=== PATIENT | male | born 1955 | race Caucasian/White ===

== ENCOUNTER 2016-10-12 18:48 | Emergency (ER) | payer SELFPAY ==
[~2016-10-12] VITALS: Ht 182.9 cm; Wt 114.5 kg
[~2016-10-12 18:48] MED LIST: HYDR-3580 PO; MOBI7.5T OR; RIVA10 PO
[2016-10-12 18:50] VITALS: BP 169/100; PULSE 104; RESP 20; TEMP 97.5; O2SAT 95
--- NOTE | 2016-10-12 19:52 | RADRPT ---
EXAM DATE/TIME: 10/12/2016 19:37 [facility] COMPARISON: No previous studies available for comparison. INDICATIONS : Headache for a few weeks and hands trembling for over a week. RADIATION DOSE: 56.35 CTDIvol (mGy) MEDICAL HISTORY : None SURGICAL HISTORY : None. ENCOUNTER: Initial ACUITY: 2 weeks PAIN SCALE: 7/10 LOCATION: cranial TECHNIQUE: Multiple contiguous axial images were obtained of the head. Using automated exposure control and adj ustment of the mA and/or kV according to patient size, radiation dose was kept as low as reasonably a chievable to obtain optimal diagnostic quality images. FINDINGS: CEREBRUM: The ventricles are normal for age. No evidence of midline shift, mass lesion, hemorrhage or acute in farction. No extra-axial fluid collections are seen. POSTERIOR FOSSA: The cerebellum and brainstem are intact. The 4th ventricle is midline. The cerebellopontine angle i s unremarkable. EXTRACRANIAL: The visualized portion of the orbits is intact. SKULL: The calvaria is intact. No evidence of skull fracture. CONCLUSION: Negative noncontrast exam. Madhu Keane MD on October 12, 2016 at 19:50 Board Certified Radiologist. This report was verified electronically.
[2016-10-12] MEDS ORDERED: SODIUM CHLOR 0.9% 1000 ML INJ 1,000 ML IV ONE (20:05)
[2016-10-12] MEDS ORDERED: SODIUM CHLORIDE 0.9% FLUSH 5 ML FLUSH IVF PRN (20:15)
[2016-10-12] MEDS ORDERED: XARE10TA PO (20:24)
[2016-10-12 20:38] LABS: BACTERIA, URINE RARE /hpf; BLOOD, URINE NEG (NEG); COMMENT (UR) CULT NOT INDICATED; CULTURE IF INDICATED CULT NOT INDICATED; GLUCOSE,URINE NEG (NEG); KETONE, URINE NEG (NEG); MUCUS URINE FEW /lpf (OCC); NITRITE,URINE NEG (NEG); PH, URINE 5.5 (5.0-8.5); URINE COLOR YELLOW (YELLW/STRAW)
--- NOTE | 2016-10-12 20:47 | RADRPT ---
EXAM DATE/TIME: 10/12/2016 20:18 [facility] COMPARISON: No previous studies available for comparison. INDICATIONS : Headache for 1 week. MEDICAL HISTORY : None. SURGICAL HISTORY : None. ENCOUNTER: Initial ACUITY: 1 week PAIN SCORE: 4/10 LOCATION: Bilateral chest FINDINGS: A single view of the chest demonstrates the lungs to be symmetrically aerated without evidence of mas s, infiltrate or effusion. The cardiomediastinal contours are unremarkable. Osseous structures are intact. CONCLUSION: No acute disease. Madhu Keane MD on October 12, 2016 at 20:46 Board Certified Radiologist. This report was verified electronically.
[2016-10-12 20:48] LABS: AUTOMATED NEUTROPHIL # 3.8 TH/MM3 (1.8-7.7); BASOPHIL # 0.1 TH/MM3 (0-0.2); BASOPHIL % 0.8 % (0.0-2.0); EOSINOPHIL # 0.1 TH/MM3 (0-0.4); EOSINOPHIL % 1.8 % (0.0-4.0); HEMATOCRIT 44.9 % (39.0-51.0); HEMO FLAGS DIFF FINAL; LYMPH % 31.1 % (9.0-44.0); LYMPHOCYTE # 2.1 TH/MM3 (1.0-4.8); MEAN CELL VOLUME 85.8 FL (80.0-100.0); MEAN CORPUSCULAR HEMOGLOBIN 30.4 PG (27.0-34.0); MEAN CORPUSCULAR HGB CONC 35.4 % (32.0-36.0); MONO % 9.7 % (0.0-8.0); NEUT % 56.6 % (16.0-70.0); PLATELET COUNT 310 TH/MM3 (150-450); RED BLOOD COUNT 5.23 MIL/MM3 (4.50-5.90); RED CELL DISTRIBUTION WIDTH 13.8 % (11.6-17.2); WHITE BLOOD COUNT 6.7 TH/MM3 (4.0-11.0)
[2016-10-12 20:49] LABS: APTT (PATIENT) 25.2 SEC (24.3-30.1); INTERNATIONAL NORMALIZED RATIO 0.9 RATIO
--- NOTE | 2016-10-12 21:00 | PD ---
HPI Chief Complaint: Medical Clearance Time Seen by Provider: 20:59 Travel History International Travel<30 days: No Contact w/Intl Traveler<30days: No Traveled to known affect area: No History of Present Illness HPI 61-year-old male with no significant medical history, presents to emergency department for evaluation. Patient states generally he returned from a long drive for work, came home and wasn't feeling really well. He went to bed and woke up on September 26 and states he had the worst headache of his life. He states he does not typically get headaches and this headache waxed and waned but persisted for a solid week. He states the headache resolved and he developed a sharp stabbing pain in his mid back. This lasted for approximately 2 days and then resolved but the headache returned and has been a nagging constant headache for the last week. Approximately for 5 days ago he developed bilateral upper extremity tremors. States he has never had anything like this in his life. States that he typically prides his handwriting but has had to have his daughter right his checks and anything important for him because of the tremors. Denies any nausea or vomiting. States he has had some dizziness associated with the headache but mostly when the pain was so bad. No chest tightness. No difficulty breathing. Patient is also tobacco cigarettes. Drinks occasional alcohol. No other symptoms to report. PFSH Past Medical History Medical History: Denies Significant Hx Cancer: No Cardiovascular Problems: No Diabetes: No Endocrine: No Genitourinary: No Hepatitis: No Hiatal Hernia: No Immune Disorder: No Medical other: No Musculoskeletal: Yes (RIGHT HIP) Neurologic: No Psychiatric: No Respiratory: No Thyroid Disease: No Tetanus Vaccination: < 5 Years Influenza Vaccination: No Past Surgical History Abdominal Surgery: No AICD: No Body Medical Devices: NONE Cardiac Surgery: No Ear Surgery: No Endocrine Surgery: No Eye Surgery: No Genitourinary Surgery: No Joint Replacement: Yes (R HIP REPLACEMENT) Oral Surgery: No Pacemaker: No Thoracic Surgery: No Other Surgery: Yes Social History Alcohol Use: Yes (OCCAS) Tobacco Use: No Substance Use: No Allergies-Medications (Allergen,Severity, Reaction): Coded Allergies: Penicillin (Unverified Allergy, Unknown, UNKNOWN - FROM CHILDHOOD, 10/12/16 ) Reported Meds & Prescriptions Reported Meds & Active Scripts Active Reported Xarelto (Rivaroxaban) 10 Mg Tab 10 Mg PO DAILY Review of Systems Except as stated in HPI: all other systems reviewed are Neg Physical Exam Narrative GENERAL: Well-nourished male patient, ambulatory no acute distress SKIN: Warm and dry. HEAD: Atraumatic. Normocephalic. EYES: Pupils equal and round. No scleral icterus. No injection or drainage. ENT: No nasal bleeding or discharge. Mucous membranes pink and moist. NECK: Trachea midline. No JVD. CARDIOVASCULAR: Regular rate and rhythm. No murmur appreciated. RESPIRATORY: No accessory muscle use. Clear to auscultation. Breath sounds equal bilaterally. GASTROINTESTINAL: Abdomen soft, non-tender, nondistended. Hepatic and splenic margins not palpable. MUSCULOSKELETAL: No obvious deformities. No clubbing. No cyanosis. No edema. Constant very minor tremor of the bilateral upper extremities. NEUROLOGICAL: Awake and alert. No obvious cranial nerve deficits. Motor grossly within normal limits. Normal speech. PSYCHIATRIC: Appropriate mood and affect; insight and judgment normal. Data Data Last Documented VS Vital Signs Date Time Temp Pulse Resp B/P Pulse Ox O2 Delivery O2 Flow Rate FiO2 10/12/16 20:19 99 18 10/12/16 18:50 97.5 169/[address] Brain W/O Iv Contrast(Rout) (10/12/16 ) Electrocardiogram (10/12/16 20:05) Complete Blood Count With Diff (10/12/16 20:05) Comprehensive Metabolic Panel (10/12/16 20:05) Magnesium (Mg) (10/12/16 20:05) Ckmb (Isoenzyme) Profile (10/12/16 20:05) Troponin I (10/12/16 20:05) Act Partial Throm Time (Ptt) (10/12/16 20:05) Prothrombin Time / Inr (Pt) (10/12/16 20:05) Urinalysis - C+S If Indicated (10/12/16 20:05) Chest, Single Ap (10/12/16 20:05) Ecg Monitoring (10/12/16 20:05) Iv Access Insert/Monitor (10/12/16 20:05) Oximetry (10/12/16 20:05) Sodium Chloride 0.9% Flush (Ns Flush) (10/12/16 20:15) Sodium Chlor 0.9% 1000 Ml Inj (Ns 1000 M (10/12/16 20:05) Cta Brain W Iv Contrast W 3d (10/12/16 ) Cta Neck W Iv Contrast W 3d (10/12/16 ) Labs Laboratory Tests Test 10/12/16 10/12/16 20:15 20:20 White Blood Count 6.7 TH/MM3 Red Blood Count 5.23 MIL/MM3 Hemoglobin 15.9 GM/DL Hematocrit 44.9 % Mean Corpuscular Volume 85.8 FL Mean Corpuscular Hemoglobin 30.4 PG Mean Corpuscular Hemoglobin 35.4 % Concent Red Cell Distribution Width 13.8 % Platelet Count 310 TH/MM3 Mean Platelet Volume 7.9 FL Neutrophils (%) (Auto) 56.6 % Lymphocytes (%) (Auto) 31.1 % Monocytes (%) (Auto) 9.7 % Eosinophils (%) (Auto) 1.8 % Basophils (%) (Auto) 0.8 % Neutrophils # (Auto) 3.8 TH/MM3 Lymphocytes # (Auto) 2.1 TH/MM3 Monocytes # (Auto) 0.6 TH/MM3 Eosinophils # (Auto) 0.1 TH/MM3 Basophils # (Auto) 0.1 TH/MM3 CBC Comment DIFF FINAL Differential Comment Prothrombin Time 10.0 SEC Prothromb Time International 0.9 RATIO Ratio Activated Partial 25.2 SEC Thromboplast Time Urine Color YELLOW Urine Turbidity CLEAR Urine pH 5.5 Urine Specific [place] 1.011 Urine Protein NEG mg/dL Urine Glucose (UA) NEG mg/dL Urine Ketones NEG mg/dL Urine Occult Blood NEG Urine Nitrite NEG Urine Bilirubin NEG Urine Urobilinogen LESS THAN 2.0 MG/DL Urine Leukocyte Esterase NEG Urine WBC 2 /hpf Urine Bacteria RARE /hpf Urine Mucus FEW /lpf Microscopic Urinalysis Comment CULT NOT INDICATED MDM Medical Decision Making Medical Screen Exam Complete: Yes Emergency Medical Condition: Yes Medical Record Reviewed: Yes Differential Diagnosis CVA versus TIA versus intracranial hemorrhage versus demyelinating disease versus aneurysm versus vasospasm versus electrolyte abnormality versus essential tremor versus viral syndrome Narrative Course 61-year-old male presents to emergency department for evaluation. CT imaging was ordered while patient waited and resulted in no acute abnormality. I discussed the patient with Dr. Bledsoe, concerned the patient may need additional workup. Lab work is ordered. She recommends moving forward with CTA of the brain and neck. We discussed if this is negative, the patient can likely be discharged with outpatient follow-up with MRI is symptoms persisted. This is ordered. Once a medical bed because the elbow, patient will be transferred and care as seen by that provider. Condition: Stable Sera Gottlieb Oct 12, 2016 21:00
[2016-10-12 21:46] LABS: ALKALINE PHOSPHATASE 73 U/L (45-117); ALT (GPT) 23 U/L (12-78); ANION GAP 11 MEQ/L (5-15); AST (GOT) 18 U/L (15-37); BICARBONATE 23.1 MEQ/L (21.0-32.0); BLOOD UREA NITROGEN 13 MG/DL (7-18); CHLORIDE 102 MEQ/L (98-107); GLOMERULAR FILTRATION RATE 80 ML/MIN (>89); MAGNESIUM 2.4 MG/DL (1.5-2.5); SODIUM (NA) 136 MEQ/L (136-145); TOTAL BILIRUBIN ADULT 0.5 MG/DL (0.2-1.0)
[2016-10-12 21:47] LABS: CREATINE KINASE 92 U/L (39-308); POTASSIUM 4.3 MEQ/L (3.5-5.1)
[2016-10-12 21:50] VITALS: BP 175/80; PULSE 90; RESP 18; O2SAT 99
[2016-10-12] MEDS ORDERED: IOHEXOL 350 MG/ML 10 ML VIAL (for RAD DIAG) IV ONE (22:09)
--- NOTE | 2016-10-12 22:38 | RADRPT ---
EXAM DATE/TIME: 10/12/2016 22:04 [facility] COMPARISON: CT BRAIN W/O CONTRAST, October 12, 2016, 19:37. INDICATIONS : Headache and arms trembling. IV CONTRAST: 75 cc Omnipaque 350 (iohexol) IV RADIATION DOSE: 25.62 CTDIvol (mGy) MEDICAL HISTORY : None documented. SURGICAL HISTORY : None documented. ENCOUNTER: Initial ACUITY: 1 day PAIN SCALE: 3/10 LOCATION: cranial This would be considered an anaphylactic reaction to contrast and patient should be appropriately med icated TECHNIQUE: Volumetric scanning was performed using a multi-row detector CT scanner. The data was post processed with a variety of visualization algorithms including full volume maximum intensity projection, multi -planar sliding thin slab reformation, curved planar reformation, and surface rendering techniques. Using automated exposure control and adjustment of the mA and/or kV according to patient size, radiat ion dose was kept as low as reasonably achievable to obtain optimal diagnostic quality images. FINDINGS: There is excellent visualization of the major intracranial arteries out to the second-order branch ve ssels. There is no evidence for aneurysm, vessel truncation or stenosis, and no evidence for vascula r malformation. CONCLUSION: Unremarkable examination. Madhu Keane MD on October 12, 2016 at 22:35 Board Certified Radiologist. This report was verified electronically.
--- NOTE | 2016-10-12 23:16 | RADRPT ---
EXAM DATE/TIME: 10/12/2016 22:04 [facility] COMPARISON: No previous studies available for comparison. INDICATIONS : Headache and trembling in the hands and arms. IV CONTRAST: 76 cc Omnipaque 350 (iohexol) IV ; Cumulative dose for multiple exams. RADIATION DOSE: 25.62 CTDIvol (mGy) ; Combined studies MEDICAL HISTORY : None documented. SURGICAL HISTORY : None documented. ENCOUNTER: Initial ACUITY: 1 day PAIN SCALE: 0/10 LOCATION: cranial TECHNIQUE: Volumetric scanning was performed using a multirow detector CT scanner. The data was post processed with a variety of visualization algorithms including full-volume maximum intensity projection, multip lanar sliding thin-slab reformation, curved-planar reformation, and surface-rendering techniques. Us ing automated exposure control and adjustment of the mA and/or kV according to patient size, radiatio n dose was kept as low as reasonably achievable to obtain optimal diagnostic quality images. FINDINGS: AORTIC ARCH: There is a three-vessel origin of the great vessels from the aorta. No evidence of ostial narrowing. There are some calcified plaques along the aortic arch. RIGHT CAROTID: The common carotid artery is intact. The carotid bulb has a normal configuration without ulceration o r narrowing. Tiny calcified plaque along the proximal right internal carotid artery. The internal car otid artery lumen is smooth without stenosis. The external carotid artery is intact. LEFT CAROTID: The common carotid artery is intact. The carotid bulb has a normal configuration without ulceration or narrowing. Small calcified plaque at the carotid bifurcation. The internal carotid artery lumen i s smooth without stenosis. The external carotid artery is intact. VERTEBRALS: The vertebral arteries have a symmetric diameter. No stenotic lesions are seen. CONCLUSION: 1. Mild atherosclerotic changes at both carotid bifurcations. 2. Otherwise, unremarkable CTA of the carotids. Darío Gaviria MD on October 12, 2016 at 23:12 Board Certified Radiologist. This report was verified electronically.
--- NOTE | 2016-10-12 23:34 | PD ---
Data Data Last Documented VS Vital Signs Date Time Temp Pulse Resp B/P Pulse Ox O2 Delivery O2 Flow Rate FiO2 10/12/16 20:19 99 18 10/12/16 18:50 97.5 169/[address] Brain W/O Iv Contrast(Rout) (10/12/16 ) Electrocardiogram (10/12/16 20:05) Complete Blood Count With Diff (10/12/16 20:05) Comprehensive Metabolic Panel (10/12/16 20:05) Magnesium (Mg) (10/12/16 20:05) Ckmb (Isoenzyme) Profile (10/12/16 20:05) Troponin I (10/12/16 20:05) Act Partial Throm Time (Ptt) (10/12/16 20:05) Prothrombin Time / Inr (Pt) (10/12/16 20:05) Urinalysis - C+S If Indicated (10/12/16 20:05) Chest, Single Ap (10/12/16 20:05) Ecg Monitoring (10/12/16 20:05) Iv Access Insert/Monitor (10/12/16 20:05) Oximetry (10/12/16 20:05) Sodium Chloride 0.9% Flush (Ns Flush) (10/12/16 20:15) Sodium Chlor 0.9% 1000 Ml Inj (Ns 1000 M (10/12/16 20:05) Cta Brain W Iv Contrast W 3d (10/12/16 ) Cta Neck W Iv Contrast W 3d (10/12/16 ) Iohexol 350 Inj (Omnipaque 350 Inj) (10/12/16 22:09) Labs Laboratory Tests Test 10/12/16 10/12/16 20:15 20:20 White Blood Count 6.7 TH/MM3 Red Blood Count 5.23 MIL/MM3 Hemoglobin 15.9 GM/DL Hematocrit 44.9 % Mean Corpuscular Volume 85.8 FL Mean Corpuscular Hemoglobin 30.4 PG Mean Corpuscular Hemoglobin 35.4 % Concent Red Cell Distribution Width 13.8 % Platelet Count 310 TH/MM3 Mean Platelet Volume 7.9 FL Neutrophils (%) (Auto) 56.6 % Lymphocytes (%) (Auto) 31.1 % Monocytes (%) (Auto) 9.7 % Eosinophils (%) (Auto) 1.8 % Basophils (%) (Auto) 0.8 % Neutrophils # (Auto) 3.8 TH/MM3 Lymphocytes # (Auto) 2.1 TH/MM3 Monocytes # (Auto) 0.6 TH/MM3 Eosinophils # (Auto) 0.1 TH/MM3 Basophils # (Auto) 0.1 TH/MM3 CBC Comment DIFF FINAL Differential Comment Prothrombin Time 10.0 SEC Prothromb Time International 0.9 RATIO Ratio Activated Partial 25.2 SEC Thromboplast Time Sodium Level 136 MEQ/L Potassium Level 4.3 MEQ/L Chloride Level 102 MEQ/L Carbon Dioxide Level 23.1 MEQ/L Anion Gap 11 MEQ/L Blood Urea Nitrogen 13 MG/DL Creatinine 0.95 MG/DL Estimat Glomerular Filtration 80 ML/MIN Rate Random Glucose 87 MG/DL Calcium Level 8.9 MG/DL Magnesium Level 2.4 MG/DL Total Bilirubin 0.5 MG/DL Aspartate Amino Transf 18 U/L (AST/SGOT) Alanine Aminotransferase 23 U/L (ALT/SGPT) Alkaline Phosphatase 73 U/L Total Creatine Kinase 92 U/L Troponin I LESS THAN 0.02 NG/ML Total Protein 8.4 GM/DL Albumin 4.2 GM/DL Urine Color YELLOW Urine Turbidity CLEAR Urine pH 5.5 Urine Specific [place] 1.011 Urine Protein NEG mg/dL Urine Glucose (UA) NEG mg/dL Urine Ketones NEG mg/dL Urine Occult Blood NEG Urine Nitrite NEG Urine Bilirubin NEG Urine Urobilinogen LESS THAN 2.0 MG/DL Urine Leukocyte Esterase NEG Urine WBC 2 /hpf Urine Bacteria RARE /hpf Urine Mucus FEW /lpf Microscopic Urinalysis Comment CULT NOT INDICATED MDM Supervised Visit with EMILI: Yes Narrative Course Assumed care of patient from nurse practitioner. This 61-year-old man who presents with headache times about 2 weeks, intermittent, with unusual episodes of back pain, now tremor in the upper extremities. On my exam he has a pretty normal neurologic exam. Faint terminate upper extremity isoccasionally. Strength is full and equal. Normal finger to nose without dysmetria or other focal neurologic abnormality. Workup is been entirely negative. She was sent for CTA of his head and neck to look for any evidence of aneurysm that could suggest risk for subarachnoid hemorrhage. I trouble to find alternative etiology of her symptoms. Musculoskeletal: The neck or back, he can expect paresthesias but not really tremor. Similarly unusual neurologic diseases such as lumbar a or transverse myelitis would not be expected to produce the pain and headache. I don't think he has an encephalitis. Recommend further evaluation by neurology if symptoms persist, return for any new or worsening symptoms. Diagnosis Primary Impression: Tremor Additional Impression: Headache Qualified Code: R51 - Acute nonintractable headache, unspecified headache type Referrals: Nancy Martinez MD 1 week Patient Instructions: General Instructions Additional Instruction: Follow-up with in 5-7 days. Return to the emergency department for any new or worsening symptoms, especially any new neurologic symptoms such as confusion weakness numbness or such. Med/Other Pt SpecificInfo: No Change to Meds Disposition: 01 DISCHARGE HOME Condition: Stable Aren Buchanan MD Oct 12, 2016 23:34
[2016-10-12 23:54] VITALS: BP 167/87
--- NOTE | 2016-10-14 16:59 | EKG ---
Date Performed: 10/12/2016 Time Performed: 23:15:28 PTAGE: 61 years EKG: Sinus rhythm NORMAL ECG PREVIOUS TRACING : 04/15/2013 09.52 Compared to prior tracing no significant change DOCTOR: Zach Silverman Interpretating Date/Time 10/14/2016 16:57:50
== END 2016-10-13 00:07 | disposition home or self-care (01) ==
LOC: NEPE 18:48
DX: Z88.0 Allergy status to penicillin (principal); R25.1 Tremor, unspecified
CPT/HCPCS: 70450; 70496; 70498; 71010; 80053; 81001; 82550; 83735; 84484; 85025; 85610; 85730; 93005; 99284; J7030; Q9967